=== PATIENT | male | born 1990 | race African-American/Black ===

== ENCOUNTER 2021-03-24 07:43 | Emergency (ER) | payer SELFPAY ==
[2021-03-24] MEDS ORDERED: Acetaminophen 500 MG TAB ONE (08:08)
== END 2021-03-24 08:18 | disposition home or self-care (01) ==
LOC: ERS 07:43
DX: S90.02XA Contusion of left ankle, initial encounter (principal); F17.210 Nicotine dependence, cigarettes, uncomplicated; W22.8XXA Striking against or struck by other objects, initial encounter

== ENCOUNTER 2023-05-31 12:30 | Emergency (ER) | payer SELFPAY ==
[2023-05-31] MEDS ORDERED: Acetaminophen 500 MG TAB ONE (13:05)
== END 2023-05-31 13:08 | disposition home or self-care (01) ==
LOC: ERS 12:30
DX: M25.511 Pain in right shoulder (principal); F17.210 Nicotine dependence, cigarettes, uncomplicated
CPT/HCPCS: 99283

== ENCOUNTER 2024-08-03 18:05 | Emergency (ER) | payer BC, SELFPAY ==
[2024-08-03] MEDS ORDERED: HYDROcodone/Acetaminophen 5/325 mg Tablet ONE (19:43)
== END 2024-08-03 20:02 | disposition home or self-care (01) ==
LOC: ERS 18:05
DX: S52.572A Other intraarticular fracture of lower end of left radius, initial encounter for closed fracture (principal); S52.612A Displaced fracture of left ulna styloid process, initial encounter for closed fracture; F17.210 Nicotine dependence, cigarettes, uncomplicated; W01.0XXA Fall on same level from slipping, tripping and stumbling without subsequent striking against object, initial encounter
CPT/HCPCS: 29105